=== PATIENT | male | born 1990 | race Caucasian/White ===

== ENCOUNTER 2023-11-10 18:01 | Observation (INO) | payer OTHER, MEDICAID, SELFPAY ==
[2023-11-10] VITALS (14 sets, daily range): BP systolic 116–143; BP diastolic 58–78; PULSE 97–125; RESP 14–43; TEMP 35.9–36.8; O2SAT 97–99; BMI 25.8
--- NOTE | 2023-11-10 18:16 | DI.RAD.S_ITS ---
PROCEDURE: XR CHEST 1V INDICATIONS: suspected sepsis TECHNIQUE: One view of the chest was acquired. COMPARISON: None. FINDINGS: Surgical changes and devices: None. Lungs and pleura: Lungs are clear. No pleural effusions or pneumothorax. Mediastinum: Mediastinal contours appear normal. Heart size is normal. Bones and chest wall: No suspicious bony lesions. Overlying soft tissues appear unremarkable. IMPRESSION: No acute cardiopulmonary abnormality is seen. Dictated by: Rylee Gonzales M.D. on 11/10/2023 at 19:19 Approved by: Rylee Gonzales M.D. on 11/10/2023 at 19:19
--- NOTE | 2023-11-10 18:21 | DI.CT.S_ITS ---
PROCEDURE: CT FACIAL BONES W CON INDICATIONS: LARGE R SIDED FACIAL ABSCESS TECHNIQUE: After the administration of intravenous contrast, 2.5 mm axial sections acquired from the mid-neck to the frontal sinuses, with coronal and sagittal reformats. For radiation dose reduction, the following was used: automated exposure control, adjustment of mA and/or kV according to patient size. COMPARISON: None. FINDINGS: Image quality: Excellent. Soft tissues: There is prominent soft tissue thickening over the right malar region without discrete drainable fluid collection. Subcutaneous edema extends from the periorbital region inferiorly to the level of the thyroid cartilage. Bilateral cervical chain and submandibular lymph nodes are present. Vascular: Visualized vascular structures appear patent throughout. Bony vascular foramina and canals appear normal. Bones: Facial bones appear intact, without fractures, erosions, or destruction. Visualized portions of the skull base and auditory canals also appear normal. There is a tiny periapical lucency with lateral bone loss at the 1st right mandibular molar. There are a few small periapical lucencies in the left maxillary roots on the left. Sinuses: Paranasal sinuses are aerated without fluid levels, mucosal thickening, or mucoceles. Mastoid air cells are aerated. IMPRESSION: Significant right-sided facial soft tissue swelling without visible drainable abscess. This may be periodontal in origin as there is bone loss adjacent to the right 1st mandibular molar. Reactive adenopathy is present. Dictated by: Rylee Gonzales M.D. on 11/10/2023 at 20:24 Approved by: Rylee Gonzales M.D. on 11/10/2023 at 20:30
--- NOTE | 2023-11-10 18:23 | ED_ITS ---
HPI - Skin/Abscess/Foreign Bdy General Chief complaint: Skin/Abscess/Foreign Body Stated complaint: Face swollen Time Seen by Provider: 11/10/23 18:18 Source: patient Mode of arrival: Ambulatory Limitations: no limitations History of Present Illness HPI narrative: 32-year-old male with history of fentanyl and amphetamine abuse, dental caries presents with 3 days of rapidly increasing right upper facial swelling and dental pain. Patient states that he was taking antibiotics that a friend gave him, but he does not know the name of them. His face continued to swell and become more painful so he was presenting for evaluation. He has not seen a dentist. Related Data Allergies Allergy/AdvReac Type Severity Reaction Status Date / Time No Known Drug Allergies Allergy Verified 11/10/23 18:16 Review of Systems Review of Systems Narrative: Negative except as noted above Patient History Social History Smoking Status: Current every day smoker Smoking Status: Current every day smoker Substance Use Type: opiates and methamphetamine Exam Initial Vital Signs Initial Vital Signs: Vital Signs Temperature 98.3 F 11/10/23 18:09 Pulse Rate 125 H 11/10/23 18:09 Respiratory Rate 22 11/10/23 18:09 Blood Pressure 143/76 H 11/10/23 18:09 Pulse Oximetry 98 11/10/23 18:09 Oxygen Delivery Method Room Air 11/10/23 18:09 Const: Awake, alert Eyes: PERRL, EOMI, conjunctiva normal, periorbital swelling right face ENT: No trismus, no pooling of secretion, large amount of erythema and swelling right cheek extending into right periorbital region Cardiac: Tachycardia, regular rhythm RESP: unlabored, clear bilaterally, no wheezing GI: Atraumatic, soft, nontender, nondistended, no rebound, no guarding MSK: Atraumatic, full range of motion, pulses equal Skin: Warm, Dry, intact, no rashes Neuro: AO x3, CN II-XII grossly intact, moves all extremities Psych: affect normal, mood normal, not suicidal, not homicidal Course Orders Ordered: ED Orders 11/10/23 18:16 XR chest 1V Stat RT Consult Eval and Treat NOW 11/10/23 18:21 CT facial bones w con Stat 11/10/23 18:30 Complete Blood Count AUTO DIFF Stat Comprehensive Metabolic Panel Stat Lactate (Lactic Acid) Stat Lipase Stat PTT Partial Thromboplastin Boy Stat Procalcitonin Stat Prothrombin Time INR Stat 11/10/23 19:55 Blood Culture Stat 11/10/23 20:00 Urine Culture Stat Urine Microscopic Stat tox [Urine Drug Screen, Rapid] Stat Ondansetron HCl (Ondansetron 4 Mg/2 Ml Inj) 4 mg IV NOW PRN PRN Reason: Nausea And Vomiting Ondansetron HCl (Ondansetron 4 Mg Odt) 4 mg SL NOW PRN PRN Reason: Nausea And Vomiting Discontinued Medications Dexamethasone (Dexamethasone 10 Mg/Ml Vial) 10 mg IV NOW ONE Stop: 11/10/23 18:22 Last Admin: 11/10/23 19:01 Dose: 10 mg Documented By: PUJA Sodium Chloride (Normal Saline 0.9%) 1,000 mls @ 1,000 mls/hr IV BOLUS ONE Stop: 11/10/23 19:15 Last Infusion: 11/10/23 20:30 Dose: Infused Documented By: Admin: 11/10/23 19:01 Dose: 1,000 mls/hr Documented By: PUJA Ampicillin Sodium/Sulbactam (Sodium 3 gm/ Sodium Chloride) 100 mls @ 200 mls/hr IV NOW ONE Stop: 11/10/23 18:22 Last Infusion: 11/10/23 20:30 Dose: Infused Documented By: Admin: 11/10/23 20:05 Dose: 200 mls/hr Documented By: Vital Signs Vital signs: Vital Signs - 8 hr 11/10/23 18:09 11/10/23 18:30 11/10/23 18:55 Temperature 98.3 F Pulse Rate 125 H 116 H Respiratory Rate 22 16 Blood Pressure 143/76 H 129/67 Pulse Oximetry 98 98 Oxygen Delivery Method Room Air 11/10/23 18:55 11/10/23 19:00 11/10/23 19:00 Temperature Pulse Rate 113 H 114 H Respiratory Rate 16 15 Blood Pressure 127/71 Pulse Oximetry 97 98 Oxygen Delivery Method 11/10/23 19:15 11/10/23 19:15 11/10/23 19:30 Temperature Pulse Rate 110 H 104 H Respiratory Rate 14 17 Blood Pressure 120/69 Pulse Oximetry 97 98 Oxygen Delivery Method 11/10/23 19:30 11/10/23 19:45 11/10/23 19:45 Temperature Pulse Rate 108 H Respiratory Rate 30 H Blood Pressure 120/63 129/68 Pulse Oximetry 99 Oxygen Delivery Method 11/10/23 20:03 11/10/23 20:04 11/10/23 20:04 Temperature Pulse Rate 101 H 101 H Respiratory Rate 14 Blood Pressure 127/69 Pulse Oximetry 97 97 Oxygen Delivery Method 11/10/23 20:15 11/10/23 20:15 11/10/23 20:30 Temperature Pulse Rate 100 H Respiratory Rate 20 Blood Pressure 116/58 L 123/69 Pulse Oximetry 98 Oxygen Delivery Method 11/10/23 20:30 11/10/23 20:45 11/10/23 20:45 Temperature Pulse Rate 105 H 104 H Respiratory Rate 43 H 23 Blood Pressure 127/72 Pulse Oximetry 97 98 Oxygen Delivery Method 11/10/23 21:00 11/10/23 21:00 Temperature Pulse Rate 97 H Respiratory Rate 29 H Blood Pressure 127/72 Pulse Oximetry 97 Oxygen Delivery Method MDM - Skin/Abscess/Foreign Bdy Lab Data 11/10/23 18:30 11/10/23 18:30 Labs: Lab Results 11/10/23 11/10/23 Range/Units 18:30 20:00 WBC 14.9 H (4.5-11.0) X10^3/uL RBC 4.30 L (4.5-5.9) X10^6/uL Hgb 12.4 L (13.5-17.5) g/dL Hct 36.9 L (41-53) % MCV 85.8 (80-100) fL MCH 28.9 (26-34) PG MCHC 33.7 (30-36) % RDW 13.1 (11.6-14.8) % Plt Count 302 (150-400) X10^3/uL Neut % (Auto) 81.5 H (50-75) % Lymph % (Auto) 11.4 L (25-40) % [place] % (Auto) 6.5 (3-14) % Eos % (Auto) 0.3 L (2-4) % Baso % (Auto) 0.3 (0-2) % Neut # (Auto) 01558 H (4583-4563) /uL Lymph # (Auto) 1700 (5437-0591) /uL [place] # (Auto) 1000 H (0-900) /uL Eos # (Auto) 100 (0-450) /uL Baso # (Auto) 0 (0-100) /uL PT 12.3 (9.4-12.5) SECONDS INR 1.1 (0.9-1.3) APTT 34 (25.1-36.5) SECONDS Sodium 136 L (137-145) mmol/L Potassium 3.7 (3.4-5.1) mmol/L Chloride 99 (98-107) mmol/L Carbon Dioxide 28 (22-32) mmol/L BUN 14 (9-20) mg/dL Creatinine 0.72 (0.66-1.25) mg/dL Estimated GFR > 60 (>60) mL/min BUN/Creatinine Ratio 19.4 (6-22) Glucose 124 H (70-100) mg/dL Lactate 1.1 (0.7-2.1) mmol/L Calcium 8.8 (8.4-10.2) mg/dL Total Bilirubin 0.3 (0.2-1.3) mg/dL AST 20 (17-59) IU/L ALT 15 (<50) IU/L Alkaline Phosphatase 55 (38-126) U/L Total Protein 7.9 (6.3-8.2) g/dL Albumin 4.1 (3.5-5.0) g/dL Globulin 3.8 (1.7-4.1) g/dL Albumin/Globulin Ratio 1.1 (1.0-2.8) Lipase 44 (23-300) U/L Procalcitonin 0.05 (<0.5) ng/mL U Opiates 300ng/mL cut Negative (Negative) Ur Oxycodone Screen Negative (Negative) Urine Methadone Screen Negative (Negative) Ur Barbiturates Screen Negative (Negative) U Tricyclic Antidepress Negative (Negative) Ur Phencyclidine Scrn Negative (Negative) Ur Amphetamines Screen Negative (Negative) U Methamphetamines Scrn Positive H (Negative) Ur MDMA Scrn (Ecstasy) Positive H (Negative) U Benzodiazepines Scrn Negative (Negative) Urine Cocaine Screen Negative (Negative) U Marijuana (THC) Screen Negative (Negative) Urine pH Normal (Normal) Urine Specific [place] Normal (Normal) Ur Creatinine Normal (Normal) Urine Dip Bedside Urine Glucose Negative Bedside Urine Bilirubin - Negative Bedside Urine Ketone - Negative Urine Specific [place] 1.010 Bedside Urine Occult Blood +++ Bedside Urine pH 6.5 Bedside Urine Protein - Negative Bedside Urine Urobilinogen - Negative Bedside Urine Leukocytes - Negative Esterase MDM Narrative Medical decision making narrative: Significant right-sided facial pain and swelling, presumably from dental caries. Patient is protecting his airway, there has no pooling of secretions, no trismus. Sepsis bundle ordered on arrival, we will order Unasyn and Decadron. Plan to order CT maxillofacial to assess for abscess or other underlying conditions. Laboratory work reviewed, mild leukocytosis, lactic acid normal. Urinalysis positive for amphetamines and MDMA. CT of the face with and without contrast is significant for extensive cellulitis without drainable abscess. Patient has received IV antibiotics and heart rate has decreased to less than 100 beats per minute after IV fluids. Patient to be admitted for further IV antibiotics at this time. Discharge Plan Departure Patient Disposition: Admitted as Observation Clinical Impression: Cellulitis diffuse, face Admit Date/Time: 11/10/23 21:15 Admit Provider: Richar Garcia
[2023-11-10 18:47] LABS: Add Manual Diff / Slide Review NO; Basophils Absolute Auto 0 /uL (0-100); Basophils Percent Auto 0.3 % (0-2); Eosinophils Absolute Auto 100 /uL (0-450); Eosinophils Percent Auto 0.3 % (2-4); Hematocrit 36.9 % (41-53); Hemoglobin 12.4 g/dL (13.5-17.5); Lymphocytes Absolute Auto 1700 /uL (1100-4500); Lymphocytes Percent Auto 11.4 % (25-40); Mean Corpuscular HGB Conc 33.7 % (30-36); Mean Corpuscular Hemoglobin 28.9 PG (26-34); Mean Corpuscular Volume 85.8 fL (80-100); Monocytes Absolute Auto 1000 /uL (0-900); Monocytes Percent Auto 6.5 % (3-14); Neutrophils Absolute Auto 12100 /uL (1500-7000); Neutrophils Percent Auto 81.5 % (50-75); Platelet Count 302 X10^3/uL (150-400); Red Cell Distribution Width 13.1 % (11.6-14.8); White Blood Cell Count 14.9 X10^3/uL (4.5-11.0)
[2023-11-10 18:59] LABS: INR 1.1 (0.9-1.3); Prothrombin Time 12.3 SECONDS (9.4-12.5)
[2023-11-10 19:01] LABS: PTT Partial Thromboplastin Tim 34 SECONDS (25.1-36.5)
[2023-11-10] MEDS: DEXAMETHASONE 10 MG/ML VIAL IV (19:01)
[2023-11-10] MEDS: SODIUM CHLORIDE 0.9% 1,000 ML 1000 ML IV (19:01)
[2023-11-10 19:02] LABS: Lactate (Lactic Acid) 1.1 mmol/L (0.7-2.1)
[2023-11-10 19:04] LABS: Alanine Aminotransferase 15 IU/L (<50); Albumin 4.1 g/dL (3.5-5.0); Albumin Globulin Ratio 1.1 (1.0-2.8); Alkaline Phosphatase 55 U/L (38-126); Aspartate Aminotransferase 20 IU/L (17-59); BUN Creatinine Ratio 19.4 (6-22); Bilirubin Total 0.3 mg/dL (0.2-1.3); Blood Urea Nitrogen 14 mg/dL (9-20); Calcium 8.8 mg/dL (8.4-10.2); Carbon Dioxide 28 mmol/L (22-32); Chloride 99 mmol/L (98-107); Estimated Glomerular Filt Rate > 60 mL/min (>60); Globulin 3.8 g/dL (1.7-4.1); Glucose 124 mg/dL (70-100); HEMOLYSIS < 15 (0-50); Lipase 44 U/L (23-300); Potassium 3.7 mmol/L (3.4-5.1); Sodium 136 mmol/L (137-145); Total Protein 7.9 g/dL (6.3-8.2)
[2023-11-10 19:20] LABS: Procalcitonin 0.05 ng/mL (<0.5)
[2023-11-10] MEDS: AMPICILLIN/SULBACTAM 3 GM 3 GM in SODIUM CHLORIDE 0.9% 100 ML IV (20:05)
[2023-11-10 20:53] LABS: Ur Creatinine Normal (Normal); Ur Specific Gravity Normal (Normal); Urine MDMA Positive (Negative); Urine Methamphetamines Positive (Negative); Urine Tetrahydrocannabinol Negative (Negative); Urine pH Normal (Normal)
[2023-11-10 20:54] LABS: UR Morphine/Opiate cutoff 300 Negative (Negative); Urine Amphetamines Negative (Negative); Urine Barbiturates Negative (Negative); Urine Benzodiazepines Negative (Negative); Urine Cocaine Negative (Negative); Urine Methadone Negative (Negative); Urine Oxycodone Negative (Negative); Urine Phencyclidine Negative (Negative); Urine Tricyclic Antidepressant Negative (Negative)
[2023-11-10 21:28] LABS: Bacteria Urine Few (2-10); Squamous Epithelial Cell Urine 0-1 /HPF (0-5/HPF); Urine Volume 10mL (spun); WBC Urine 0-1/HPF (0-5/HPF)
[2023-11-10 21:29] LABS: Amorphous Sediment Urine 2+; Calcium Oxalate Crystals Urine Occasional; RBC Urine 5-10/HPF (0-5/HPF)
--- NOTE | 2023-11-10 22:47 | PM.HP.1 ---
History of Present Illness History of Present Illness Date Patient Seen: 11/10/23 Time Patient Seen: 22:47 Chief complaint: Face swollen Narrative: The pt is a polysubstance abuser who reports that he has had tooth pain on the right side for the past 4 days and over the past 24 hours ahs noticed signficant amount of bruising and swelling in the right side of his face extending into the rt eye lid. He denies any fevers, chills, N/V or problems swallowing. He know he has multiple denial carries in his mouth and he states that he has an appointment iwth a dentist soon. PFS Social History Smoking Status: Current every day smoker Meds Home Medications and Allergies Home Medications Medication Instructions Recorded Confirmed Type No Known Home Medications 11/10/23 11/10/23 History Allergies Allergy/AdvReac Type Severity Reaction Status Date / Time No Known Drug Allergies Allergy Verified 11/10/23 18:16 Exam Vital Signs (past 8 hours): - 11/10/23 18:09 11/10/23 18:30 11/10/23 18:55 Temperature 98.3 F Pulse Rate 125 H 116 H Respiratory Rate 22 16 Blood Pressure 143/76 H 129/67 Pulse Oximetry 98 98 Oxygen Delivery Method Room Air Oxygen Flow Rate 11/10/23 18:55 11/10/23 19:00 11/10/23 19:00 Temperature Pulse Rate 113 H 114 H Respiratory Rate 16 15 Blood Pressure 127/71 Pulse Oximetry 97 98 Oxygen Delivery Method Oxygen Flow Rate 11/10/23 19:15 11/10/23 19:15 11/10/23 19:30 Temperature Pulse Rate 110 H 104 H Respiratory Rate 14 17 Blood Pressure 120/69 Pulse Oximetry 97 98 Oxygen Delivery Method Oxygen Flow Rate 11/10/23 19:30 11/10/23 19:45 11/10/23 19:45 Temperature Pulse Rate 108 H Respiratory Rate 30 H Blood Pressure 120/63 129/68 Pulse Oximetry 99 Oxygen Delivery Method Oxygen Flow Rate 11/10/23 20:03 11/10/23 20:04 11/10/23 20:04 Temperature Pulse Rate 101 H 101 H Respiratory Rate 14 Blood Pressure 127/69 Pulse Oximetry 97 97 Oxygen Delivery Method Oxygen Flow Rate 11/10/23 20:15 11/10/23 20:15 11/10/23 20:30 Temperature Pulse Rate 100 H Respiratory Rate 20 Blood Pressure 116/58 L 123/69 Pulse Oximetry 98 Oxygen Delivery Method Oxygen Flow Rate 11/10/23 20:30 11/10/23 20:45 11/10/23 20:45 Temperature Pulse Rate 105 H 104 H Respiratory Rate 43 H 23 Blood Pressure 127/72 Pulse Oximetry 97 98 Oxygen Delivery Method Oxygen Flow Rate 11/10/23 21:00 11/10/23 21:00 11/10/23 22:00 Temperature 96.6 F L Pulse Rate 97 H 104 H Respiratory Rate 29 H 16 Blood Pressure 127/72 126/78 Pulse Oximetry 97 97 Oxygen Delivery Method Oxygen Flow Rate 0 Oxygen Delivery Method Room Air Oxygen Flow Rate 0 Const General: cooperative and comfortable HENMT Face and sinus: ecchymosis, erythema and edema Resp Auscultation: clear to auscultation bilaterally Cardio Rate: tachycardic Rhythm: regular rhythm Objective Labs 11/10/23 18:30 11/10/23 18:30 Labs: Laboratory Results - last 24 hr 11/10/23 11/10/23 18:30 20:00 WBC 14.9 H RBC 4.30 L Hgb 12.4 L Hct 36.9 L MCV 85.8 MCH 28.9 MCHC 33.7 RDW 13.1 Plt Count 302 Neut % (Auto) 81.5 H Lymph % (Auto) 11.4 L [place] % (Auto) 6.5 Eos % (Auto) 0.3 L Baso % (Auto) 0.3 Neut # (Auto) 16910 H Lymph # (Auto) 1700 [place] # (Auto) 1000 H Eos # (Auto) 100 Baso # (Auto) 0 PT 12.3 INR 1.1 APTT 34 Sodium 136 L Potassium 3.7 Chloride 99 Carbon Dioxide 28 BUN 14 Creatinine 0.72 Estimated GFR > 60 BUN/Creatinine Ratio 19.4 Glucose 124 H Lactate 1.1 Calcium 8.8 Total Bilirubin 0.3 AST 20 ALT 15 Alkaline Phosphatase 55 Total Protein 7.9 Albumin 4.1 Globulin 3.8 Albumin/Globulin Ratio 1.1 Lipase 44 Procalcitonin 0.05 Urine RBC 5-10/hpf H Urine WBC 0-1/hpf Ur Squamous Epith Cells 0-1 /hpf Calcium Oxalate Crystal Occasional H Amorphous Sediment 2+ Urine Bacteria Few (2-10) H Vol Urine Centrifuged 10ml (spun) U Opiates 300ng/mL cut Negative Ur Oxycodone Screen Negative Urine Methadone Screen Negative Ur Barbiturates Screen Negative U Tricyclic Antidepress Negative Ur Phencyclidine Scrn Negative Ur Amphetamines Screen Negative U Methamphetamines Scrn Positive H Ur MDMA Scrn (Ecstasy) Positive H U Benzodiazepines Scrn Negative Urine Cocaine Screen Negative U Marijuana (THC) Screen Negative Urine pH Normal Urine Specific [place] Normal Ur Creatinine Normal Assessment & Plan Assessment & Plan narrative: 1. Facial cellulitis due to dental caries- the pt will be admitted on Unasyn 3 gm q8, and has made an improvement already. I spoke with the ER provider and agree with the decision for admission. 2. Polysubstance abuse- he is positve for ecsasy and meth in the ER. will not prescribe narcotics during his stay, Valium has been order prn for possible withdrawl, Toradol and ibuprofen + tylenol.
[2023-11-10] MEDS: SODIUM CHLORIDE 0.9% 1,000 ML 125 ML IV (23:15)
[2023-11-11 04:00] VITALS: BP 100/51; PULSE 83; RESP 17; TEMP 37.5; O2SAT 93
[2023-11-11] MEDS: AMPICILLIN/SULBACTAM 3 GM 3 GM in SODIUM CHLORIDE 0.9% 100 ML IV (04:53)
[2023-11-11 05:23] LABS: Add Manual Diff / Slide Review NO; Basophils Absolute Auto 0 /uL (0-100); Eosinophils Absolute Auto 0 /uL (0-450); Hematocrit 33.4 % (41-53); Hemoglobin 11.4 g/dL (13.5-17.5); Lymphocytes Absolute Auto 800 /uL (1100-4500); Mean Corpuscular HGB Conc 34.1 % (30-36); Mean Corpuscular Hemoglobin 29.1 PG (26-34); Mean Corpuscular Volume 85.4 fL (80-100); Monocytes Absolute Auto 200 /uL (0-900); Monocytes Percent Auto 2.4 % (3-14); Neutrophils Absolute Auto 8700 /uL (1500-7000); Neutrophils Percent Auto 89.6 % (50-75); Platelet Count 270 X10^3/uL (150-400); Red Blood Cell Count 3.91 X10^6/uL (4.5-5.9); Red Cell Distribution Width 12.9 % (11.6-14.8); White Blood Cell Count 9.8 X10^3/uL (4.5-11.0)
[2023-11-11] MEDS: PANTOPRAZOLE DR 20 MG TABLET PO (05:31)
[2023-11-11 05:32] LABS: Alanine Aminotransferase 16 IU/L (<50); Albumin 3.7 g/dL (3.5-5.0); Albumin Globulin Ratio 1.1 (1.0-2.8); Alkaline Phosphatase 52 U/L (38-126); Aspartate Aminotransferase 20 IU/L (17-59); BUN Creatinine Ratio 18.7 (6-22); Bilirubin Total 0.3 mg/dL (0.2-1.3); Blood Urea Nitrogen 14 mg/dL (9-20); Calcium 8.5 mg/dL (8.4-10.2); Carbon Dioxide 24 mmol/L (22-32); Chloride 101 mmol/L (98-107); Estimated Glomerular Filt Rate > 60 mL/min (>60); Globulin 3.5 g/dL (1.7-4.1); Glucose 167 mg/dL (70-100); HEMOLYSIS < 15 (0-50); Potassium 4.3 mmol/L (3.4-5.1); Sodium 137 mmol/L (137-145); Total Protein 7.2 g/dL (6.3-8.2)
[2023-11-11 07:30] VITALS: BP 102/48; PULSE 75; RESP 20; TEMP 36.5; O2SAT 96
[2023-11-11] MEDS: SODIUM CHLORIDE 0.9% 1,000 ML 125 ML IV (08:42)
--- NOTE | 2023-11-11 10:41 | PM.DS.1 ---
History of Present Illness History of Present Illness Date Patient Seen: 11/11/23 Time Patient Seen: 10:42 Chief complaint: Face swollen Narrative: Per admitting provider, The pt is a polysubstance abuser who reports that he has had tooth pain on the right side for the past 4 days and over the past 24 hours ahs noticed signficant amount of bruising and swelling in the right side of his face extending into the rt eye lid. He denies any fevers, chills, N/V or problems swallowing. He know he has multiple denial carries in his mouth and he states that he has an appointment iwth a dentist soon. Discharge Providers Provider Date of admission: 11/10/23 21:15 Discharge Date: 11/11/23 Discharge provider: Nic Ribeiro DO Summary Hospital Course Discharge Diagnosis: 1. Facial cellulitis due to dental caries 2. Polysubstance abuse Hospital Course: 32 M admitted with a facial cellulitis due to dental caries. No abscess or fluid collection was seen on imaging. He had rapid improvement with unasyn and pain was able to be controlled with toradol. He was discharged the following morning with minimal facial erythema. He was sent a week of augmentin at discharge, and a prescription for toradol. Time Spent with Patient Time spent: Less than 30 minutes Exam Vital Signs (past 8 hours): - 11/11/23 04:00 11/11/23 07:30 Temperature 99.5 F 97.7 F Pulse Rate 83 75 Respiratory Rate 17 20 Blood Pressure 100/51 L 102/48 L Pulse Oximetry 93 96 Oxygen Flow Rate 0 Oxygen Delivery Method Room Air Oxygen Flow Rate 0 Narrative Exam Narrative: Gen: young male, no acute distress, WDWN HEENT: facial swelling and erythema on the R, no eye involvement, reports much improved and minimal tenderness and warmth now. Ext: no edema Objective Labs 11/11/23 04:48 11/11/23 04:48 Labs: Laboratory Results - last 24 hr 11/10/23 11/10/23 11/11/23 18:30 20:00 04:48 WBC 14.9 H 9.8 RBC 4.30 L 3.91 L Hgb 12.4 L 11.4 L Hct 36.9 L 33.4 L MCV 85.8 85.4 MCH 28.9 29.1 MCHC 33.7 34.1 RDW 13.1 12.9 Plt Count 302 270 Neut % (Auto) 81.5 H 89.6 H Lymph % (Auto) 11.4 L 8.0 L [place] % (Auto) 6.5 2.4 L Eos % (Auto) 0.3 L 0.0 L Baso % (Auto) 0.3 0.0 Neut # (Auto) 20291 H 8700 H Lymph # (Auto) 1700 800 L [place] # (Auto) 1000 H 200 Eos # (Auto) 100 0 Baso # (Auto) 0 0 PT 12.3 INR 1.1 APTT 34 Sodium 136 L 137 Potassium 3.7 4.3 Chloride 99 101 Carbon Dioxide 28 24 BUN 14 14 Creatinine 0.72 0.75 Estimated GFR > 60 > 60 BUN/Creatinine Ratio 19.4 18.7 Glucose 124 H 167 H Lactate 1.1 Calcium 8.8 8.5 Total Bilirubin 0.3 0.3 AST 20 20 ALT 15 16 Alkaline Phosphatase 55 52 Total Protein 7.9 7.2 Albumin 4.1 3.7 Globulin 3.8 3.5 Albumin/Globulin Ratio 1.1 1.1 Lipase 44 Procalcitonin 0.05 Urine RBC 5-10/hpf H Urine WBC 0-1/hpf Ur Squamous Epith Cells 0-1 /hpf Calcium Oxalate Crystal Occasional H Amorphous Sediment 2+ Urine Bacteria Few (2-10) H Vol Urine Centrifuged 10ml (spun) U Opiates 300ng/mL cut Negative Ur Oxycodone Screen Negative Urine Methadone Screen Negative Ur Barbiturates Screen Negative U Tricyclic Antidepress Negative Ur Phencyclidine Scrn Negative Ur Amphetamines Screen Negative U Methamphetamines Scrn Positive H Ur MDMA Scrn (Ecstasy) Positive H U Benzodiazepines Scrn Negative Urine Cocaine Screen Negative U Marijuana (THC) Screen Negative Urine pH Normal Urine Specific [place] Normal Ur Creatinine Normal PFSH Social History household members: significant other Smoking Status: Current every day smoker alcohol intake: never Discharge Plan Discharge Plan Patient Disposition: Home Provider Discharge Comment: You were admitted to the hospital with facial cellulitis / infection. This improved with antibiotics. Please complete full course of antibiotics at home. Continue tylenol and ibuprofen at home, but do not take prescribed pain medication (if needed for more severe pain) with ibuprofen. Discharge orders & Medications Prescriptions: New ketorolac 10 mg tablet 10 mg PO TID PRN (Reason: pain) 7 Days Qty: 20 0RF amoxicillin-pot clavulanate 875-125 mg tablet 1 tab PO BID 7 Days Qty: 14 0RF Diet/Activity/Treatments Diet: Diet as Tolerated and Regular Activity: As tolerated, no restrictions Visit Report/Discharge Packet Instructions: DI for Dental Pain, How to Use Antibiotics Wisely Stand Alone Forms: Patient Portal/API, Stroke Signs & Symptoms Discharge Data Attending Provider: Richar Garcia Admit Date/Time: 11/10/23 21:15
--- NOTE | 2023-11-11 11:23 | CM.DANOTE ---
Patient is a 32 yo male who was admitted on 11/10/23 for Facial Cellulitis. Pt has [employer] and [employer] for insurance and no PCP but goes to the [facility] in [place]. EMR was reviewed. Per MD, pt with hx of polysubstance abuse and admitted for IV-Abx per oral surgeon recommendations. Per MD, pt now medically stable to d/c home today with outpt f/u with Dentist/Oral Surgeon. SW met bedside with pt and Sig Other Mo and explained role and they confirm they live in [place] in an apt and both are active and independent at baseline. Pt currently not working and does not drive but Sig Other has a vehicle and she confirms she can transport pt home. Pt confirms he is not currently established with a PCP as he has not seen a doctor or needed ED in many years although they have already called [facility] to get an appointment although might still be a few months. SW encouraged them to call for an emergent appointment after being hospitalized for medical needs. SW inquired about pt's UDS+ for MDMA and meth and he states that it is only recreational and declines need for LUMA resources or supports. Pt states his preference is to d/c home today via Sig Other POV and declines any further discharge planning needs. Plan: Patient to d/c home today via Sig Other POV and outpt f/u with [facility] for PCP and Dental. MINISTERIO Levi Discharge Planning/Care Management CM Discharge Assessment Start: 11/11/23 11:21 Freq: Status: Active Protocol: Document 11/11/23 11:22 BF (Rec: 11/11/23 11:23 BF [id number]) Discharge Planning Assessment Assigned Commercial [employer] Service Technician MINISTERIO Mohan DPOA/Assigned Designee Name none Advance Directives? No Advance Directives on File No History Provided By Patient,Significant Other, Medical Record Has Patient been admitted in last 30 No days? Prior Living Arrangements Apartment/Condo Household Members significant other Type of transporation used prior to Relies on Others admit Independent with ADL's Yes Is patient alert and oriented? Yes Caregiver for Another No Barriers to Discharge No Discharge Plan Home Transportation Arrangement Sig Other Mo bedside and she can transport at d/c Referrals Initiated None needed Additional Comment Pt declines need for LUMA resources although UDS+ for MDMA and meth Whiteboard Updated in Patient Room with Yes name and ext. # of Commercial T[employer] Service Technician Review Status In Process Please Provide Date Initial DC 11/11/23 Assessment Was Performed Next Review Type Continued Stay Review
--- NOTE | 2023-11-11 11:25 | PC.NURSE ---
Day shift: Discharge instructions gone over with patient and patient's SO. Patient stated understanding, all questions answered. PO antibiotics and ketoralac sent to outside pharmacy. PIVs removed prior to discharge. Returned patient's vape to him - it was locked in nurse safe. Patient states he has all belongings. PCT Tramaine escorted patient to exit.
== END 2023-11-11 11:24 | disposition home or self-care (01) ==
LOC: ED 20:48 → AC 21:15
PROVIDERS: Admitting Provider Internal Medicine; Emergency Provider Emergency Medicine; Referring Provider Emergency Medicine; Visit Provider Internal Medicine
DX: L03.211 Cellulitis of face (principal); K02.9 Dental caries, unspecified; F19.10 Other psychoactive substance abuse, uncomplicated; F17.210 Nicotine dependence, cigarettes, uncomplicated
CPT/HCPCS: 36415; 70487; 71045; 80053; 80305; 81003; 81015; 83605; 83690; 84145; 85025; 85610; 85730; 87040; 87086; 96365; 96366; 96375; 99284; G0378; J0295; J1100; Q9967